=== PATIENT | female | born 1980 | race Caucasian/White ===

== ENCOUNTER 2024-02-12 15:56 | Outpatient (REF) | payer BC, OTHER, SELFPAY | END 2024-02-12 15:57 | disposition home or self-care (01) | LOC: LAB 15:56 | PROVIDERS: PCP Nurse Practitioner Family; Visit Provider Nurse Practitioner Family | DX: Z01.419 Encounter for gynecological examination (general) (routine) without abnormal findings (principal) | CPT/HCPCS: 87624; 88175 ==

== ENCOUNTER 2024-06-22 18:15 | Emergency (ER) | payer OTHER, BC, SELFPAY ==
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
[2024-06-22 18:26] VITALS: BP 154/89; PULSE 94; TEMP 36.6; O2SAT 97; BMI 26.3
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
[2024-06-22] MEDS: IBUPROFEN 400 MG TABLET 800 MG PO (19:36)
[2024-06-22 19:37] VITALS: O2SAT 99
== END 2024-06-22 19:40 | disposition home or self-care (01) ==
PROVIDERS: Emergency Provider Emergency Medicine; PCP Nurse Practitioner Family
DX: S52.502A Unspecified fracture of the lower end of left radius, initial encounter for closed fracture (principal); V86.56XA Driver of dirt bike or motor/cross bike injured in nontraffic accident, initial encounter
CPT/HCPCS: 29125; 73110; 73130; 99283

== ENCOUNTER 2024-06-23 06:21 | Emergency (ER) | payer OTHER, BC, SELFPAY ==
[2024-06-23 06:25] VITALS: BP 155/95; PULSE 90; TEMP 36.8; O2SAT 100; BMI 26.5
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
[2024-06-23] MEDS: HYDROMORPHONE HCL 1 MG/ML CARTRIDGE IM (06:40)
[2024-06-23] MEDS: ONDANSETRON 4 MG RAPDIS TABLET SL (06:43)
[2024-06-23] MEDS: OXYCODONE HCL/ACETAMINOPHEN 5MG/325MG 2 TAB PO (06:57)
[2024-06-23] MEDS: OXYCODONE HCL/ACETAMINOPHEN 5MG/325MG 1 TAB PO (06:58)
== END 2024-06-23 07:04 | disposition home or self-care (01) ==
PROVIDERS: Emergency Provider Emergency Medicine; PCP Nurse Practitioner Family
DX: S52.502A Unspecified fracture of the lower end of left radius, initial encounter for closed fracture (principal); V86.56XA Driver of dirt bike or motor/cross bike injured in nontraffic accident, initial encounter; F11.20 Opioid dependence, uncomplicated
CPT/HCPCS: 29125; 96372; 99284; J1171; Q0162

== ENCOUNTER 2024-06-30 11:37 | Outpatient (OUT) | payer BC, SELFPAY ==
--- NOTE | 2024-06-30 | XR_ITS ---
The [address] [address] Patient Name: CRISTOPHER SOSA MRN: [id number] date: 1980 Sex: F Assigned Patient Location: Current Patient Location: Accession/Order Number: [id number] Exam Date: 06/30/2024 15:55 Report Date: 06/30/2024 15:57 At the request of: NARCISO WOODS MD Procedure: XR wrist LT min 3V LEFT WRIST - 3 views CLINICAL HISTORY: M25.532 ACUTE PAIN OF LEFT WRIST COMPARISON: Left wrist 06/22/2024 FINDINGS: No focal soft tissue abnormality. Previously identified intra-articular distal radius fracture is grossly unchanged in alignment and healing compared to the prior study. XR/XR wrist LT min 3V IMPRESSION: NO SIGNIFICANT CHANGE IN FRACTURE FINDINGS. Impression dictated by: Chauncey Longo Jr., D.O. 06/30/2024 3:57 PM Dictation Location: [place] [address] Electronically authenticated by: [id number] Y Date: 06/30/2024 15:57
== END 2024-06-30 11:38 | disposition home or self-care (01) ==
LOC: EC 11:38
PROVIDERS: PCP Nurse Practitioner Family; Visit Provider Orthopaedic Surgery
DX: M25.532 Pain in left wrist (principal); S52.572D Other intraarticular fracture of lower end of left radius, subsequent encounter for closed fracture with routine healing
CPT/HCPCS: 73110

== ENCOUNTER 2024-07-22 16:15 | Emergency (ER) | payer BC, SELFPAY ==
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
[2024-07-22 16:27] VITALS: BP 147/95; PULSE 78; TEMP 36.9; O2SAT 99; BMI 26.0
--- NOTE | 2024-07-22 16:56 | ED_ITS ---
HPI HPI - General Adult General Chief complaint: Dental/Oral Stated complaint: tooth infection Time Seen by Provider: 07/22/24 16:30 History of Present Illness HPI narrative: The patient is a 44-year-old female who presents to the emergency department today for evaluation concerns for left jaw swelling and dental pain. She endorses the symptoms have been ongoing over the past week approximately. She reports she has been taking clindamycin and was seen by her dentist who advised she come to the ER for further evaluation. She reports remote history of a tooth extraction for only part of the tooth was removed. she denies any fevers. No headache, neck pain, difficulty swallowing, chest pain, shortness of breath, abdominal pain, nausea/vomiting. Related Data Home Medications ?Medication ?Instructions ?Recorded ?Confirmed buprenorphine 8 mg-naloxone 2 mg 1 film buccal DAILY 0 06/22/24 07/22/24 sublingual film gabapentin 600 mg tablet 600 mg PO Q12H 06/22/24 05/ clindamycin HCl 300 mg capsule 300 mg PO Q6H 07/22/24 07/22/24 Allergies Allergy/AdvReac Type Severity Reaction Status Date / Time Penicillins AdvReac Severe Rash Verified 07/22/24 16:26 Opioid HPI Opioid Management Most Recent Opioid Data: Last Pain Scale 7 Today, 17:11 Last MAR Pain Assessment Today, 17:11 Review of Systems ROS Status of ROS 10 or more systems reviewed and unremark able except as noted in history and below PFSH PFSH Social History Little interest or pleasure in doing things: not at all Feeling down, depressed, or hopeless: not at all Exam Narrative Exam Narrative: Constituational: Awake/ alert, no apparent distress, well hydrated HENMT: normocephalic, internal/external ears normal, + mild edema to L maxillary region, + pain to partial avulsion of tooth #19 with surrounding edema and erythema, no trismus, moist oral mucous membranes and oropharynx normal Eyes: EOMI and conjunctivae normal Neck: ROM intact, no meningeal signs Chest: inspection of chest normal Respiratory: Normal respiratory effort, clear to auscultation bilaterally Cardio: regular rate and regular rhythm MSK: No edema, +NVI Skin: no rashes or petechiae Neuro: no focal deficits Psych: mental status grossly normal Constitutional Vital Signs, click to edit/add: Last Vital Signs Temp 98.5 F 07/22/24 16:27 Pulse 78 07/22/24 16:27 Resp 20 07/22/24 16:27 BP 147/95 H 07/22/24 16:27 Pulse Ox 99 07/22/24 16:27 O2 Del Method Room Air 07/22/24 16:27 Course Vital Signs Vital signs: Vital Signs Temperature 98.5 F 07/22/24 16:27 Pulse Rate 78 07/22/24 16:27 Respiratory Rate 20 07/22/24 16:27 Blood Pressure 147/95 H 07/22/24 16:27 Pulse Oximetry 99 07/22/24 16:27 Oxygen Delivery Method Room Air 07/22/24 16:27 Temperature 98.5 F 07/22/24 16:27 Pulse Rate 78 07/22/24 16:27 Respiratory Rate 07/22/24 16:27 Blood Pressure 147/95 H 07/22/24 16:27 Pulse Oximetry 99 07/22/24 16:27 Oxygen Delivery Method Room Air 07/22/24 16:27 Medical Decision Making [facility] Narrative Medical decision making narrative: Patient is a nontoxic and well-appearing 44-year-old female who pres ented to the emergency department today for evaluation concerns for dental infection with left mandibular region swelling. Initial examination vital signs overall stable. No clinical evidence concerning for cellulitis. No trismus. Labs stable and showed no significant leukocytosis, anemia, thrombocytopenia. Electrolytes including renal and hepatic function stable. CT imaging of soft tissue neck does show left mandibular soft tissue infection with suspected tiny soft tissue abscess of 23 x 4 mm. Discussed these findings with the patient including recommendations for supportive care of dental abscess and surgically fractured tooth. Historically patient is on clindamycin per her dentist and does have follow-up to schedule with maxillofacial surgery for tooth extraction. Reiterated continuation of her antibiotic therapy and to have close follow-up with maxillofacial surgery for definitive care. Discussed signs and symptoms of any worsening condition and when to consider reevaluation. Patient verbalized an understanding of this and is agreeable with the plan to be discharged home. Medical Records Medical records reviewed: Yes I reviewed the patient's medical records Lab Data Lab results reviewed: Yes I reviewed the patient's lab results Labs: Lab Results 07/22/24 Range/Units 16:59 WBC 8.4 (4.0-11.0) 10^3/uL RBC 4.42 (4.20-5.40) 10^6/uL Hgb 13.1 (12.0-16.0) g/dL Hct 37.6 (36.0-48.0) % MCV 85.1 (81.0-99.0) fL MCH 29.6 (26.7-34.0) pg MCHC 34.8 (29.9-35.2) g/dL RDW 12.8 (11.0-15.0) % Plt Count 195 (150-450) 10^3/uL MPV 9.5 (9.5-13.5) fL Neut % (Auto) 80.3 H (43.0-75.0) % Lymph % (Auto) 11.1 L (20.5-60.0) % Caldwell % (Auto) 6.9 (1.7-12.0) % Eos % (Auto) 1.1 (0.9-7.0) % Baso % (Auto) 0.4 (0.2-2.0) % Neut # (Auto) 6.8 H (1.4-6.5) 10^3/uL Lymph # (Auto) 0.9 L (1.2-3.8) 10^3/uL Caldwell # (Auto) 0.6 (0.3-0.8) 10^3/uL Eos # (Auto) 0.1 (0.0-0.7) 10^3/uL Baso # (Auto) 0.0 (0.0-0.1) 10^3/uL Abs Immat Gran (auto) 0.02 (0.00-0.03) 10^3/uL Imm/Tot Granulo (auto) 0.2 (0.0-0.5) % Sodium 140 (136-145) mmol/L Potassium 3.9 (3.5-5.1) mmol/L Chloride 104 (98-107) mmol/L Carbon Dioxide 28.2 (21.0-32.0) mmol/L Anion Gap 11.7 BUN 11.0 (7.0-18.0) mg/dL Creatinine 0.62 (0.55-1.02) mg/dL Est GFR ( Amer) >60 (>=60 mL/min/1.73m^2) Est GFR (Non-Af Amer) >60 (>=60 mL/min/1.73m^2) BUN/Creatinine Ratio 17.7 Glucose 124 H (74-106) mg/dL Calcium 8.6 (8.5-10.1) mg/dL Total Bilirubin 0.5 (0.2-1.0) mg/dL AST 18 (15-37) U/L ALT 26 (14-59) U/L Alkaline Phosphatase 79 (46-116) U/L Total Protein 6.6 (6.4-8.2) g/dL Albumin 3.8 (3.4-5.0) g/dL Globulin 2.8 g/dL Albumin/Globulin Ratio 1.[address] soft tissue neck: Attestation: I have reviewed the pertinent imaging results. Radiologist's impression: Left mandibular soft tissue infection with suspected tiny soft tissue abscess. Discharge Plan Discharge Chief Complaint: Dental/Oral Clinical Impression: Dental abscess, Fracture of tooth Patient Disposition: Home, Self-Care Prescriptions / Home Meds: No Action gabapentin 600 mg tablet 600 mg PO Q12H buprenorphine-naloxone 8-2 mg film 1 film buccal DAILY clindamycin HCl 300 mg capsule 300 mg PO Q6H Print Language: Serbian Instructions: Dental Abscess (ED), Toothache (ED) Additional Instructions: Continue your antibiotics as prescribed. May take Tylenol and ibuprofen as needed for any pain. May additionally apply ice for added comfort. Please follow-up with your maxillofacial surgeon for reevaluation as discussed. Referrals: KIKE GONZALEZ [Primary Care Provider, Family Practice] - 1 week
[2024-07-22 17:08] LABS: Basophils Percent Auto 0.4 % (0.2-2.0); Eosinophils Absolute Auto 0.1 10^3/uL (0.0-0.7); Eosinophils Percent Auto 1.1 % (0.9-7.0); Hematocrit 37.6 % (36.0-48.0); Hemoglobin 13.1 g/dL (12.0-16.0); Immature Granulocytes Abs Auto 0.02 10^3/uL (0.00-0.03); Immature Granulocytes Pct Auto 0.2 % (0.0-0.5); Lymphocytes Absolute Auto 0.9 10^3/uL (1.2-3.8); Lymphocytes Percent Auto 11.1 % (20.5-60.0); Mean Corpuscular HGB Conc 34.8 g/dL (29.9-35.2); Mean Corpuscular Hemoglobin 29.6 pg (26.7-34.0); Mean Corpuscular Volume 85.1 fL (81.0-99.0); Mean Platelet Volume 9.5 fL (9.5-13.5); Monocytes Absolute Auto 0.6 10^3/uL (0.3-0.8); Monocytes Percent Auto 6.9 % (1.7-12.0); Neutrophils Absolute Auto 6.8 10^3/uL (1.4-6.5); Neutrophils Percent Auto 80.3 % (43.0-75.0); Platelet Count 195 10^3/uL (150-450); Red Blood Count 4.42 10^6/uL (4.20-5.40); Red Cell Distribution Width 12.8 % (11.0-15.0); White Blood Count 8.4 10^3/uL (4.0-11.0)
[2024-07-22] MEDS: KETOROLAC TROMETHAMINE 30 MG/ML VIAL IVP (17:11)
[2024-07-22 17:24] LABS: Alanine Aminotransferase 26 U/L (14-59); Albumin Globulin Ratio 1.4; Albumin Level 3.8 g/dL (3.4-5.0); Alkaline Phosphatase 79 U/L (46-116); Anion Gap 11.7; Aspartate Amino Transferase 18 U/L (15-37); BUN Creatinine Ratio 17.7; Bilirubin Total 0.5 mg/dL (0.2-1.0); Calcium 8.6 mg/dL (8.5-10.1); Carbon Dioxide 28.2 mmol/L (21.0-32.0); Chloride 104 mmol/L (98-107); Estimated GFR (African America >60 (>=60 mL/min/1.73m^2); Estimated GFR (Non-African Ame >60 (>=60 mL/min/1.73m^2); Globulin 2.8 g/dL; Glucose 124 mg/dL (74-106); Potassium 3.9 mmol/L (3.5-5.1); Sodium 140 mmol/L (136-145); Total Protein 6.6 g/dL (6.4-8.2)
[2024-07-22 18:19] VITALS: BP 132/82; PULSE 81; O2SAT 99
== END 2024-07-22 18:19 | disposition home or self-care (01) ==
PROVIDERS: Nurse Practitioner; Emergency Provider Emergency Medicine; PCP Nurse Practitioner Family
DX: K04.7 Periapical abscess without sinus (principal); S02.5XXA Fracture of tooth (traumatic), initial encounter for closed fracture; X58.XXXA Exposure to other specified factors, initial encounter
CPT/HCPCS: 36415; 70491; 80053; 85025; 96374; 99285; J1885; Q9967

== ENCOUNTER 2024-08-05 13:56 | Outpatient (REF) | payer BC, SELFPAY ==
--- OUTSIDE RECORDS SUMMARY | 2024-08-05 10:30 | XMS_ITS | Encounter Summary ---
Author Organization [facility] Address [address] [place] [address] Care Team Providers Care Demolition Worker Name Role Phone Unavailable Primary Care Provider Unavailabl e Reason for Visit * Reason Comments Abnormal Pap Smear Pt referred by Isabel plummer for abnormal pap smear. Pt had an annual on 02/29/2024 Neg w/HPV+. Pt had consult visit w/Dr. Obrien on 04/01/2024 discussed a Colposcopy procedure due to abnormal pap smear. Encounter Details Date Type Department Care Team (Latest Contact Info) Description 08/05/2024 10:30 AM EDT Procedure Visit [facility] [address] [id number] Edson Obrien, DO [address] [place] [address] Pap smear abnormality of cervix/human papillomavirus (HPV) positive Social History Tobacco Use Types Packs/Day Years Used Date Smoking Tobacco: Never Assessed Comments No Sex and Gender Information Value Date Recorded Sex Assigned at Not on file Legal Sex Female 6:47 PM EDT Gender Identity Not on file Sexual Orientation Not on file documented as of this encounter Last Filed Vital Signs Vital Sign Reading Time Taken Comments Blood Pressure 122/74 08/05/2024 11:26 AM EDT Pulse - - Temperature - - Respiratory Rate - - Oxygen Saturation - - Inhaled Oxygen Concentration - - Weight 71.2 kg (157 lb) 08/05/2024 11:26 AM EDT Height 165.1 cm (5' 5 ) 08/05/2024 11:26 AM EDT Body Mass Index 26.13 08/05/2024 11:26 AM EDT documented in this encounter Progress Notes * Alyx Rider, MANAGER ROOFING - 08/05/2024 10:30 AM EDTAssociated Order(s): Colposcopy Post-Procedure Diagnose(s): Pap smear abnormality of cervix/human papillomavirus (HPV) positive Reason for Appointment: Patient ID: Sander Parker is a 44 y.o. female who presents for Abnormal Pap Smear (Pt referred by Isabel Hernandez for abnormal pap smear. Pt had an annual on 02/29/2024 Neg w/HPV+. Pt had consult visit w/Dr. Obrien on 04/01/2024 discussed a Colposcopy procedure due to abnormal pap smear.) Patient presents today for a Colposcopy appointment. MEDICATIONS Current Outpatient Medications Medication Instructions buprenorphine-naloxone (Suboxone) 2-0.5 MG per sublingual film Suboxone phentermine (ADIPEX-P) 37.5 mg, Oral, Daily before breakfast ALLERGIES Allergies Allergen Reactions Penicillins Other Reaction(s): Unknown PROBLEMS Active Ambulatory Problems Diagnosis Date Noted No Active Ambulatory Problems Resolved Ambulatory Problems Diagnosis Date Noted No Resolved Ambulatory Problems No Additional Past Medical History HISTORY PAST MEDICAL HISTORY SOCIAL HISTORY No past medical history on file. Social History Tobacco Use Smoking status: Not [...] Constitutional: Appearance: Normal appearance. She is well-developed. Genitourinary: Vulva normal. Cardiovascular: Rate and Rhythm: Normal rate and [...] nursing note reviewed. Exam conducted with a life enrichment assistant present. Vitals: Estimated body mass index is 26.13 kg/m?? as calculated from the following: Height as of this encounter: 5' 5 . Weight as of this encounter: 157 lb. BP: 122/74 Patient's last menstrual period was 07/21/2024 (approximate). ASSESSMENT & PLAN Assessment/Plan Encounter Diagnosis: ICD-10-CM 1. Pap smear abnormality of cervix/human papillomavirus (HPV) positive R87.618 Colposcopy POCT , urine manually resulted CANCELED: POCT urinalysis dipstick manually resulted Colposcopy Date/Time: 08/05/2024 11:35 AM Performed by: Edson Obrien DO Authorized by: Edson Obrien DO Consent: Patient questions answered: yes Risks and benefits of the procedure and its alternatives discussed: yes Consent obtained: Written Consent given by: Patient Indication: Other indication(s): clinical abnormality Pre-procedure: Prep solution(s): acetic acid Procedure: Colposcopy with: endocervical curettage Biopsy taken: no Cervix visibility: fully visualized Post-procedure: Patient tolerance of procedure: Patient tolerated the procedure well with no immediate complications Instructions and paperwork completed: yes Educational handouts given: no Comments: Colposcopy: Patient is doing well and has no complaints. Pap results have been reviewed with the patient in great detail and patient voiced understanding. Patient presents today for a Colposcopy with ECC. Patient was placed in dorsal lithotomy position with feet in stirrups, a sterile speculum was placed into the vagina and the cervix was visualized. Cervix was cleansed with vinegar. Postprocedural instructions given. All if patients questions answered and she expressed understanding. Advised to call in interim with questions or concerns. Follow Up: Patient is to return in 6 months for Repeat Pap. Documented by Alyx Rider LPN on behalf of: Edson Obrien DO documented in this encounter Plan of Treatment Scheduled Orders Name Type Priority Associated Diagnoses Orde r Schedule Colposcopy Procedures Routine Pap smear abnormality of cervix/human papillomavirus (HPV) positive Expected: 08/05/2024 (Approximate), Expires: 08/05/2025 documented as of this encounter Procedures Procedure Name Priority Date/Time Associated Diagnosis Comments COLPOSCOPY Routine 08/05/2024 11:35 AM EDT Pap smear abnormality of cervix/human papillomavirus (HPV) positive POCT , URINE Routine 08/05/2024 11:35 AM EDT Pap smear abnormality of cervix/human papillomavirus (HPV) positive documented in this encounter Results * Colposcopy (08/05/2024 11:35 AM EDT) Narrative Alyx Rider LPN - 08/05/2024 11:35 AM EDT Alyx Rider LPN 08/06/2024 11:07 AM Colposcopy Date/Time: 08/05/2024 11:35 AM Performed by: Edson Obrien DO Authorized by: Edson Obrien DO Consent: Patient questions answered: yes Risks and benefits of the procedure and its alternatives discussed: yes Consent obtained: Written Consent given by: Patient Indication: Other indication(s): clinical abnormality Pre-procedure: Prep solution(s): acetic acid Procedure: Colposcopy with: endocervical curettage Biopsy taken: no Cervix visibility: fully visualized Post-procedure: Patient tolerance of procedure: Patient tolerated the procedure well with no immediate complications Instructions and paperwork completed: yes Educational handouts given: no Comments: Colposcopy: Patient is doing well and has no complaints. Pap results have been reviewed with the patient in great detail and patient voiced understanding. Patient presents today for a Colposcopy with ECC. Patient was placed in dorsal lithotomy position with feet in stirrups, a sterile speculum was placed into the vagina and the cervix was visualized. Cervix was cleansed with vinegar. Postprocedural instructions given. All if patients questions answered and she expressed understanding. Advised to call in interim with questions or concerns. Follow Up: Patient is to return in 6 months for Repeat Pap. [employer] Gamessherwin Obrien DO IN CLINIC/BEDSIDE ORDERABLES Fin al Result * POCT , urine manually resulted (08/05/2024 11:35 AM EDT) Preg Test, Ur Negative Negative Urine 08/05/2024 11:3 5 AM EDT [employer] Gamessherwin Obrien DO POINT OF CARE TEST ENTER/EDIT OR DERABLES Final Result documented in this encounter Visit Diagnoses Diagnosis Pap smear abnormality of cervix/human papillomavirus (HPV) positive Other abnormal Papanicolaou smear of cervix and cervical HPV documented in this encounter
== END 2024-08-05 13:57 | disposition home or self-care (01) ==
LOC: LAB 13:56
PROVIDERS: PCP Nurse Practitioner Family; Visit Provider Obstetrics & Gynecology
DX: R87.618 Other abnormal cytological findings on specimens from cervix uteri (principal)
CPT/HCPCS: 88305; 88342; 88360

== ENCOUNTER 2024-10-09 12:55 | Outpatient (OUT) | payer BC, SELFPAY ==
--- NOTE | 2024-10-09 13:00 | MR_ITS ---
[address] [address] Patient Name: CRISTOPHER SOSA MRN: [id number] date: 1980 Sex: F Assigned Patient Location: MRI Current Patient Location: MRI Accession/Order Number: [id number] Exam Date: 10/09/2024 15:50 Report Date: 10/09/2024 15:59 At the request of: MIRANDA CARO NP Procedure: MR wrist LT wo con MR wrist LT wo con 10/09/2024 2:48 PM SIGNS AND SYMPTOMS: Fracture Left Radius PROTOCOL: Multiplanar multisequence MR images of the left wrist without IV contrast COMPARISON: 06/30/2024 FINDINGS: Alignment: Normal Fluid: Carpus effusion: There is a small joint effusion on both the radial and ulnar aspect of the carpal rows. Distal radioulnar joint effusion: There is a small joint effusion with a ganglion cyst measuring 1.9 x 1.0 x 1.4 cm projecting predominantly along the dorsum of the joint space. Intrinsic ligaments: Scapholunate: Intact. Lunotriquetral: Intact. Ulnar side: Triangular fibrocartilage: Intact. Lunate facet: Intact Hamate-lunate: Intact. Extensor compartment: I: Intact. II: Intact. III: Intact. IV: Intact. V: Intact. : Intact. Flexor compartment: Carpal tunnel: Median nerve: Normal. Flexor retinaculum: Intact. Flexor tendons: Intact. Guyon canal: Normal. Articular: Thumb carpometacarpal joint: Intact. Scaphotrapeziotrapezoidal joint: Intact. Pisiform-triquetral joint: Intact. Bones (other than subarticular marrow): Marrow edema is noted at the base of the first metacarpal, along the base of the lunate, and along the scaphoid adjacent to the radial styloid consistent with bone contusions. There is a similarly obliquely oriented fracture of the radial styloid with accompanying marrow edema in the distal radius. There is intra-articular extension.. Muscles: Normal. Vessels: Normal. MR/MR wrist LT wo con IMPRESSION: There is a similarly obliquely oriented fracture of the radial styloid with accompanying marrow edema in the distal radius. There is intra-articular extension. Marrow edema is noted at the base of the first metacarpal, along the base of the lunate, and along the scaphoid adjacent to the radial styloid consistent with bone contusions. Joint effusions are noted along the distal radioulnar joint and along the carpal rows. Impression dictated by: Gino Garland M.D. 10/09/2024 3:59 PM Dictation Location: [place] [address] Electronically authenticated by: [id number] Y Date: 10/09/2024 15:59
--- NOTE | 2024-10-09 13:30 | XR_ITS ---
The [address] [address] Patient Name: CRISTOPHER SOSA MRN: [id number] date: 1980 Sex: F Assigned Patient Location: MRI Current Patient Location: MRI Accession/Order Number: [id number] Exam Date: 10/09/2024 13:45 Report Date: 10/09/2024 13:46 At the request of: MIRANDA CARO NP Procedure: XR abdomen 1V KUB: CLINICAL INFORMATION: Pre-MRI COMPARISON: None FINDINGS: A clip is seen projecting over the right lower quadrant. No IVC filter or stent is in place. No radio opaque foreign body. No bowel obstruction or free air. XR/XR abdomen 1V IMPRESSION: NO RADIOPAQUE FOREIGN BODY, IVC FILTER OR STENT IS SEEN. Impression dictated by: Chauncey Longo Jr., D.ORadha 10/09/2024 1:46 PM Dictation Location: [place] [address] Electronically authenticated by: [id number] Y Date: 10/09/2024 13:46
== END 2024-10-09 12:56 | disposition home or self-care (01) ==
LOC: MRI 12:55
PROVIDERS: PCP Nurse Practitioner Family; Visit Provider Nurse Practitioner
DX: S52.592D Other fractures of lower end of left radius, subsequent encounter for closed fracture with routine healing (principal); M25.432 Effusion, left wrist
CPT/HCPCS: 73221; 74018